=== PATIENT | female | born 1960 | race Caucasian/White ===

== ENCOUNTER 2017-04-20 09:12 | Day surgery (SDC) | payer BC ==
[~2017-04-20 09:12] MED LIST: Buffered Lidocaine 0.9% SYRIN* 5 ML/SYR SYRINGE INTRADERM ONE; Buffered Lidocaine 0.9% SYRIN* 5 ML/SYR SYRINGE ONE; Famotidine IV* 10 MG/ML 2 ML (20 mg) IV ONE; Famotidine IV* 10 MG/ML 2 ML (20 mg) ONE; Midazolam* 1 MG/ML 5 ML VIAL (5 MG) ONE; fentaNYL* 50 MCG/ML 2 ML VIAL (100 MCG VIAL) ONE
[2017-04-20] MEDS ORDERED: Acetaminophen TAB* 325 MG PO PRN (09:21)
[2017-04-20] MEDS ORDERED: HYDROmorphone INJ* 1 MG/ML CARPUJECT SYRINGE IV PRN (09:21)
[2017-04-20] MEDS ORDERED: oxyCODONE TAB* 5 MG TAB PO PRN (09:21)
[2017-04-20] MEDS ORDERED: DiMENhydriNATE IV* 50 MG/ML VIAL IV PUSH PRN (09:21)
[2017-04-20 09:57] LABS: Hematocrit 43 % (35-47); Hemoglobin 14.8 g/dl (12.0-16.0); Mean Corpuscular HGB Conc 35 g/dl (31-36); Mean Corpuscular Hemoglobin 30 pg (27-31); Mean Corpuscular Volume 87 fL (80-97); Mean Platelet Volume 8 um3 (7.4-10.4); Red Blood Count 4.91 10^6/ul (4.0-5.4); Red Cell Distribution Width 13 % (10.5-15); White Blood Count 5.2 10^3/ul (3.5-10.8)
[2017-04-20] MEDS ORDERED: Ketorolac INJ* 30 MG/ML 1 ML VIAL ONE (10:30)
[2017-04-20] MEDS ORDERED: Ondansetron INJ* 2 MG/ML VIAL ONE (10:30)
[2017-04-20] MEDS ORDERED: Chloroprocaine 2%* 20 ML VIAL ONE (10:32)
[2017-04-20 12:11] VITALS: BP 87/67
--- NOTE | 2017-04-21 01:09 | OP ---
OPERATIVE REPORT: DATE OF OPERATION: 04/20/17 - [facility] DATE OF : 64 SURGEON: Main Johnson MD ANESTHESIOLOGIST: Dr. Urbina. ANESTHESIA: Spinal. PRE-OP DIAGNOSIS: Postmenopausal bleeding. POST-OP DIAGNOSES: Postmenopausal bleeding and endometrial polyp. PROCEDURE PERFORMED: Hysteroscopy, dilation and curettage, and polypectomy with MyoSure. ESTIMATED BLOOD LOSS: Minimal. URINE OUTPUT: 50 cc. IV FLUIDS: 600 cc lactated Ringer's. MATERIALS TO LAB: Endometrial curettings and endometrial polyps. INDICATIONS: This patient is a 56-year-old 4, para 2, who presented to the office with report of intermittent vaginal spotting over the last several months. Last menstrual period was about 3 years ago. Pelvic ultrasound was notable for an apparent endometrial polyp about 0.8 cm. She was extensively counseled regarding her options and we agreed to proceed with a hysteroscopic evaluation and likely polypectomy and curettage. Consent was signed. FINDINGS: Fairly flat endometrial polyp on the posterior wall of the uterus near the lower uterine segment and heterogenous polypoid tissue in both cornua especially in the right cornua. This area was significantly less smooth than the lower uterine segment polypoid area. The remainder of the endometrium appeared atrophic. COMPLICATIONS: None. DESCRIPTION OF PROCEDURE: The risks, benefits, and alternatives were described to the patient, and informed consent was obtained. The patient was taken to the operating room with IV running, where spinal anesthesia was induced and found to be adequate. The patient was prepped and draped in the normal sterile fashion in the high lithotomy position in [facility]. A time-out was performed. The bladder was emptied. Exam under anesthesia revealed an anteverted small uterus. The bladder was then emptied. A bivalved speculum was placed in the vagina and a single-toothed tenaculum was placed on the anterior cervix. The cervix was then gently dilated using Romel dilators to a size 27. At that time, a MyoSure hysteroscope was advanced through the cervix and into the uterine cavity with saline running. An [employer] fluid management system was used. The findings were as noted above. A MyoSure LITE device was then prepared and placed through the scope and into the uterine cavity under direct visualization. Both significant polyp areas were resected without difficulty using the MyoSure. Bleeding was minimal at that time. The hysteroscope was then removed. A curettage of the endometrial cavity was then performed using a small banjo curette. Curettings were collected on Telfa and handed off. The tenaculum was then removed and there was good hemostasis present. The speculum was removed and the patient was returned to the supine position. The patient tolerated the procedure well. Sponge, lap, and needle counts were correct x2. [id number]/[facility] #: [id number] [facility]
== END 2017-04-20 12:25 | disposition home or self-care (01) ==
LOC: OR 09:12
PROVIDERS: ATTEND Obstetrics & Gynecology
DX: C54.1 Malignant neoplasm of endometrium (principal); N84.0 Polyp of corpus uteri; Z88.5 Allergy status to narcotic agent; J45.909 Unspecified asthma, uncomplicated; Z85.828 Personal history of other malignant neoplasm of skin
CPT/HCPCS: 36415; 85027; 88305; 88342; 88360; J1885; J2250; J2400; J2405; J3010

== ENCOUNTER 2019-01-11 14:48 | Emergency (ER) | payer BC ==
[2019-01-11 14:58] VITALS: BP 122/77
[2019-01-11] MEDS ORDERED: Tetan/Diph/Pertus SYR(Tdap)* 0.5 ML SYR(BOOSTRIX) use SYR IM ONE (15:03)
--- NOTE | 2019-01-11 15:06 | UC ---
Laceration HPI - HPI Summary HPI Summary: Pt cut her lower right leg this afternoon on a piece of porcelain from a broken toilet. - History Of Current Complaint Chief Complaint: UCLaceration Stated Complaint: LEG LAC Time Seen by Provider: 01/11/19 14:55 Hx Obtained From: Patient Laceration Location: Leg Mechanism Of Injury: Sharp Trauma Onset/Duration: Sudden Onset, Lasting Hours Severity: Mild Pain Intensity: 2 - Allergies/Home Medications Allergies/Adverse Reactions: Allergies Allergy/AdvReac Type Severity Reaction Status Date / Time avocado Allergy Intermediate Nausea And Verified 01/11/19 15:03 Vomiting latex Allergy Itching Verified 01/11/19 15:03 NARCOTICS Allergy Severe severe Uncoded 01/11/19 15:03 nausea and vomiting Home Medications: Home Medications Cetirizine* [ZyrTEC 10 MG TAB*] 10 mg PO DAILY 01/11/19 [History Confirmed 01/11] PMH/Surg Hx/FS Hx/Imm Hx Previously Healthy: Yes - Surgical History Surgical History: Yes Surgery Procedure, Year, and Place: 2000 DILATION AND CURETTAGE, [facility] [place]. 2012 COLONOSCOPY, [facility] [place]. skin cancer removed from nose 2012. breast biopsy - benign 2009. Hysterectomy 2016 - Family History Known Family History: Positive: None - Social History Alcohol Use: Daily Substance Use Type: None Smoking Status (MU): Never Smoked Tobacco - Immunization History Most Recent Tetanus Shot: >5 years Review of Systems All Other Systems Reviewed And Are Negative: Yes Skin: Positive: Other - laceration Is Patient Immunocompromised?: No Physical Exam Triage Information Reviewed: Yes Appearance: Well-Appearing, Well-Nourished, Pain Distress Vital Signs: Initial Vital Signs Temp 97.8 F 01/11/19 14:54 Pulse 67 01/11/19 14:54 Resp 16 01/11/19 14:54 BP 122/77 01/11/19 14:54 Pulse Ox 100 01/11/19 14:54 Vital Signs Reviewed: Yes Eye Exam: Normal ENT Exam: Normal Neck exam: Normal Respiratory Exam: Normal Cardiovascular Exam: Normal Abdominal Exam: Normal Bowel Sounds: Positive: Present Musculoskeletal Exam: Normal Neurological Exam: Normal Psychological Exam: Normal Skin: Positive: Significant Lesion(s) - 4 cm v shaped laceration on the lateral side of the right leg Laceration Repair - Laceration Repair 1 Description: Irregular : No Repair Necessary Laceration Size After Repair: Length (cm) - 4 cm Modified For Repair: No Anesthesia Used: 2.0% Lido Additive Used (in ml): Epi Cleansing Completed Via Routine Prep: Yes Irrigation With Pressure Irrigation Device: Yes Closure Material: Sutures - 10 Closure Method: Single Layer Suture Of: Skin Suture Type: Prolene Laceration Course/Dx - Course/Dx Course Of Treatment: hx obtained, exam performed ,meds reviewed, tdap given, sutures placed and education of care given. - Differential Dx - Laceration/Wound Differental Diagnoses: Laceration - Diagnosis Provider Diagnosis: Laceration of lower leg without complication Discharge - Sign-Out/Discharge Documenting (check all that apply): Patient Departure All imaging exams completed and their final reports reviewed: No Studies - Discharge Plan Condition: Stable Disposition: HOME Patient Education Materials: Laceration (ED) Referrals: Antonio Crane MD [Primary Care Provider] - Additional Instructions: 1. keep area clean and dry 2. Any sign of infection, redness, warmth, pain, drainage follow up for treatment 3. Sutures will need to be removed in 10 days - Billing Disposition and Condition Condition: STABLE Disposition: Home
[2019-01-11] MEDS ORDERED: Lidocaine 2% EPI 1:200000 MPF* 10 ML VIAL INJ ONE (15:14)
[2019-01-11] MEDS ORDERED: Lidocaine 2% w EPI 1:100,000* 20 ML VIAL INJ ONE (15:22)
== END 2019-01-11 16:06 | disposition home or self-care (01) ==
LOC: UCEAST 14:48
DX: S81.811A Laceration without foreign body, right lower leg, initial encounter (principal); W26.9XXA Contact with unspecified sharp object(s), initial encounter; Y92.9 Unspecified place or not applicable; Z88.5 Allergy status to narcotic agent; Z91.040 Latex allergy status
CPT/HCPCS: 12002; 90715; 99211; G0463